=== PATIENT | female | born 1940 | race Caucasian/White ===

== ENCOUNTER 2025-05-01 09:36 | Emergency (ER) | payer MEDICARE, SELFPAY ==
[2025-05-01 09:43] VITALS: BP 149/79; PULSE 92; RESP 17; TEMP 36.8; O2SAT 93
--- OUTSIDE RECORDS SUMMARY | 2025-05-01 09:45 | XMS_ITS | Data Portability ---
Author Organization [facility] Address [address] [facility] [address] [place] [address] Assessment No assessment recorded. Plan of Treatment Reminders Order Date Submit Date Provider Last Modified By Organization Details Last Modified Time Details Appointments None recorded. Lab None recorded. Referral None recorded. Procedures None recorded. Surgeries None recorded. Imaging None recorded. Medication Orders famotidine 20 mg tablet 2024 025 [facility], [address] [place] [address], [address], 11:42:23 Patient TargetsNo targets recorded. Patient Instructions Encounter Date Encounter Id Patient Instructions Last Modified By Organization Details Last Modified Time 07/22/2024 [id number] No change in care. [email or web address] Not available 07/22/2024 16:38:23 09/23/2024 [id number] No change in michael n of care. Not available 09/23/2024 10:06:46 11/18/2024 [id number] No change in car e plan. [email or web address] Not available 11/18/2024 11:23:57 Reason for Referral None Reported. Problems Name Problem SNOMED Code Status Onset Date Resolution Date Notes Provider Name and Address Organization Details Recorded Time Hypercholest erolemia 29412108 Active 2022 Hyperch olester olemia; 023 2:43PM by Ramila Mccann, Office Visit; Promote d; acuity set as *; Not Available [facility] 03:10:43 Benign essential hypertension 9592244 Active 2022 Hyperte nsion; 023 2:43PM by Ramila Mccann, Office Visit; Promote d; acuity set as *; Andrew Caicedo MD [address] [place] [address], [phone] , [facility] 5 11:40:09 Dementia 41928275 Active 2022 Dementi a; 023 2:43PM by Ramila Mccann, Office Visit; Promote d; acuity set as *; Not Available [facility] 3 03:10:43 History of anxiety state 277504226 Active 2022 Anxiety /Depres aide; 023 2:44PM by Ramila Mccann, Office Visit; Promote d; acuity set as *; Andrew Caicedo MD [address] [place] [address], [phone] , [facility] 5 11:40:03 Mild protein-axel yuni malnutrition (weight for age 75-89 percent of standard) 587266856 Active 2022 Andrew Caicedo MD [address] [place] [address], [phone] , [facility] 3 19:12:37 Senile dementia 98687891 Active 2022 Andrew Caicedo MD [address] [place] [address], [phone] , [facility] 5 11:40:16 Pain of multiple joints 57848992 Active 2023 Andrew Caicedo MD [address] [place] [address], [phone] , [facility] 4 11:47:47 Acute superficial gastritis 588287487 Active 2024 Andrew Caicedo MD [address] [place] [address], [phone] , [facility] 5 11:41:19 Problem Notes None recorded. Medical Equipment None Reported. Medications Name Sig Start Date Stop Date Status Note LastModified by Organization Details LastModified Time hydroxyzi ne HCl 50 mg tablet TAKE 1 TABLET BY MOUTH TWICE DAILY NEEDED active Not Available Not Available No t Available amlodipin e 5 mg tablet TAKE 1 TABLET BY MOUTH ONCE DAILY active Not Available Not Available No t Available tramadol 50 mg tablet Take 1 tablet twice a day by oral route for 30 days. 2023 active Not Available Not Available Not Avai lable simvastat in 40 mg tablet TAKE 1 TABLET BY MOUTH ONCE DAILY AT BEDTIME 04/30 completed Not Available Not Available Not Available famotidin e 20 mg tablet Take 1 tablet twice a day by oral route for 30 days. 2024 active Not Available Not Available Not Avai lable simvastat in 20 mg tablet Take 1 tablet every day by oral route. active Not Available Not Available No t Available mirtazapi ne 15 mg tablet TAKE 1 TABLET BY MOUTH ONCE DAILY AT BEDTIME 03/10 completed Not Available Not Available Not Available hydroxych loroquine 200 mg tablet TAKE 1 TABLET BY MOUTH TWICE DAILY active Not Available Not Available No t Available levofloxa almas 500 mg tablet Take 1 tablet every 24 hours by oral route for 7 days. 2024 active Not Available Not Available Not Avai lable lisinopri l 40 mg tablet TAKE 1 TABLET BY MOUTH ONCE DAILY active Not Available Not Available No t Available sertralin e 50 mg tablet Take 1 tablet by mouth once daily 2024 active Not Available Not Available Not Avai lable hydroxyzi ne HCl BID as needed active 0; Recorded 06/29/19 23 2:42PM by Ramila Mccann, Office Visit; Not Available Not Available Not Available Vitamin D active 1.25 mg. weekly; 0; Recorded 06/29/19 23 2:41PM by Ramila Mccann, Office Visit; Not Available Not Available Not Available lisinopri l daily active 0; Recorded 06/29/19 23 2:40PM by Ramila Mccann, Office Visit; Not Available Not Available Not Available cholecalc iferol (vitamin D3) 1,250 mcg (50,000 unit) capsule TAKE 1 CAPSULE BY MOUTH ONCE A WEEK active Not Available Not Available No t Available amlodipin e besylate (bulk) daily active 0; Recorded 06/29/19 2:40PM by Ramila Mccann, Office Visit; Not Available Not Available Not Available Vitals Date Recorded Body height Body mass index (BMI) Body weight Respiratory rate Body temperature Oxygen saturation Heart rate Systolic And Diastolic Provider Name and Address Organization Details Last Updated DateTime 5 152.4 cm 20.1 kg/m2 02205.0 1 g 18 /min 97.6 [degF] 97 % 97 /min 158/88 mm[Hg] PAMELA [facility] 5 12:33:35 Date Recorded Body height Body mass index (BMI) Body weight Body temperature Respiratory rate Heart rate Oxygen saturation Systolic And Diastolic Provider Name and Address Organization Details Last Updated DateTime 5 152.4 cm 18.6 kg/m2 02566.2 8 g 97.2 [degF] 18 /min 93 /min 96 % 136/77 mm[Hg] PAMELA [facility] 5 11:29:31 Date Recorded Body height Body mass index (BMI) Body weight Heart rate Oxygen saturation Respiratory rate Systolic And Diastolic Provider Name and Address Organization Details Last Updated DateTime 5 152.4 cm 18.7 kg/m2 08385.8 7 g 86 /min 93 % 20 /min 150/80 mm[Hg] PMAELA [facility] 5 10:44:24 Date Recorded Body height Body mass index (BMI) Body weight Oxygen saturation Heart rate Respiratory rate Body temperature Systolic And Diastolic Provider Name and Address Organization Details Last Updated DateTime 5 152.4 cm 18.9 kg/m2 11166.4 6 g 95 % 75 /min 18 /min 97.6 [degF] 108/60 mm[Hg] PAM[facility]A [facility] 5 12:58:24 Date Recorded Body height Body mass index (BMI) Body weight Body temperature Heart rate Respiratory rate Oxygen saturation Systolic And Diastolic Provider Name and Address Organization Details Last Updated DateTime 5 152.4 cm 18.7 kg/m2 32123.8 7 g 98.4 [degF] 75 /min 18 /min 91 % 124/54 mm[Hg] PAMELA HAYDEN [facility] 5 10:37:26 Social History None recorded. Functional Status None recorded. Mental Status None recorded. Family History Nothing Reported. Medical History No medical history recorded. Gynecological HistoryNo gynecological history recorded. Obstetrics History GPAL:G 0 P 0 0 0 0 Past Encounters Encounter ID Performer Location Encounter Start Date Encounter Closed Date Diagnosis/Indication Diagnosis SNOMED-CT Code Diagnosis ICD10 Code Diagnosis IMO Codes Diagnosis Note [id number] Andrew Caicedo MD [facility] ([facility]) [address] [place] [phone] 09/12/2022 10:49:40 09/20/2022 23:03:47 Senile dementia 20087130 F03.90 Mild prote in-calorie malnutrition (weight for age 75-89 percent of standard) 482666003 E44.1 improved some since admission. Need for p ersonal care assistance [id number] 1288458 Z74.1 Lives in usp 16 9047820 Z76.89 [id number] Andrew Caicedo MD [facility] ([facility]) [address] [place] [id number] 5 11/21/2022 09:52:11 11/21/2022 19:57:55 Need for personal care assistance [id number] 9697915 Z74.1 Lives in [facility]p 16 5423467 Z76.89 Senile dementia 75851408 F03.90 [id number] Andrew Caicedo MD [facility] ([facility] [facility]) [address] [place] [id number] 01/16/2023 08:31:19 01/16/2023 16:37:03 Need for personal care assistance 8437001596 0942200 Z74.1 Lives in usp 16 3725710 Z76.89 Benign ess ential hypertension 9918344 I10 Dementia 84563570 F03.90 stable [id number] Andrew Caicedo MD [facility] ([facility]) [address] [place] [id number] 5 03/27/2023 07:57:33 03/27/2023 18:37:55 Need for personal care assistance [id number] 9410027 Z74.1 Lives in usp 16 7530330 Z76.89 Benign ess ential hypertension 8222813 I10 Dementia 91904252 F03.90 stable. Patient is not able to care for herself. History of anxiety state 357626361 F41.9 [id number] Andrew Caicedo MD [facility] ([facility] [facility]) [address] [place] [id number] 05/16/2023 07:57:44 05/16/2023 15:12:33 Benign essential hypertension 3461868 I10 Dementia 85715136 F03.90 stable. Patient is not able to care for herself. This is a moderate dementia. History of anxiety state 162863095 F41.9 [facility]isted [facility] [id number] 5501516 Z76.89 [id number] Andrew Caicedo MD [facility] ([facility] [facility]) [address] [place] [id number] 5 07/24/2023 07:55:21 07/24/2023 18:10:56 Need for personal care assistance 3660381742 4681543 Z74.1 Lives in usp 16 8980763 Z76.89 [id number] Andrew Caicedo MD [facility] ([facility]) [address] [place] [id number] 5 07/25/2023 07:58:00 07/29/2023 14:28:07 Need for personal care assistance [id number] 6887996 Z74.1 Lives in usp 16 2020063 Z76.89 Benign ess ential hypertension 1540112 I10 Dementia 42275587 F03.90 stable. Patient is not able to care for herself. This is a moderate dementia. Mild prote in-calorie malnutrition (weight for age 75-89 percent of standard) 171923571 E44.1 improved some since admission. [id number] Andrew Caicedo MD [facility] ([facility] [facility]) [address] [place] [id number] 09/11/2023 07:53:31 09/11/2023 17:08:29 Need for personal care assistance 0641096119 2231447 Z74.1 Lives in usp 16 6032130 Z76.89 Benign ess ential hypertension 5510262 I10 Senile dementia 29052869 F03.90 stable Mild prote in-calorie malnutrition (weight for age 75-89 percent of standard) 000396069 E44.1 Improved. [id number] Andrew Caicedo MD [facility] ([facility] [facility]) [address] [place] [id number] 5 11/21/2023 10:12:15 11/24/2023 22:37:54 Benign essential hypertension 0124563 I10 Dementia 55065608 F03.90 stable. Patient is not able to care for herself. This is a moderate dementia. Hypercholesterolemia 136 13295 E78.00 Pain of mu ltiple joints 72973042 M25.50 Will probably order Tramadol bid routing with Tylenol prn to see if this helps. Need for p ersonal care assistance [id number] 4031707 Z74.1 Lives in usp 16 6450900 Z76.89 [id number] Andrew Caicedo MD [facility] ([facility] [facility]) [address] [place] [id number] 02/12/2024 09:17:57 02/12/2024 17:52:19 Benign essential hypertension 9622248 I10 Dementia 12218207 F03.90 stable. Patient is not able to care for herself. This is a moderate dementia. Need for p ersonal care assistance [id number] 6670275 Z74.1 Lives in usp 16 5156875 Z76.89 [id number] Andrew Caicedo MD [facility] ([facility] [facility]) [address] [place] [id number] 5 03/11/2024 11:45:18 03/16/2024 12:23:42 Need for personal care assistance [id number] 6017334 Z74.1 Lives in usp 16 8347597 Z76.89 Benign ess ential hypertension 7982837 I10 Senile dementia 73814900 F03.90 stable [id number] Andrew Caicedo MD [facility] ([facility] [facility]) [address] [place] [id number] 5 05/20/2024 08:17:56 05/22/2024 12:21:43 Lives in usp 391122577 Z76.89 Need for p ersonal care assistance [phone] 7674038 Z74.1 Benign ess ential hypertension 0393784 I10 Dementia 40620977 F03.90 stable. Patient is not able to care for herself. This is a moderate dementia. [id number] Andrew Caicedo MD [facility] ([facility] [facility]) [address] [place] [id number] 5 07/22/2024 09:19:45 07/29/2024 09:10:38 Lives in usp 226918700 Z76.89 Need for p ersonal care assistance [id number] 6586490 Z74.1 Benign ess ential hypertension 8709483 I10 Dementia 87581335 F03.90 stable. Patient is not able to care for herself. This is a moderate dementia. [id number] Andrew Caicedo MD [facility] ([facility] [facility]) [address] [place] [id number] 5 09/23/2024 08:09:49 09/23/2024 23:09:08 Benign essential hypertension 2410208 I10 Dementia 47085761 F03.90 stable. Patient is not able to care for herself. This is a moderate dementia. History of anxiety state 365137316 F41.9 stable at present. Need for p ersonal care assistance [phone] 7090221 Z74.1 Lives in usp 16 5777994 Z76.89 [id number] Andrew Caicedo MD [facility] ([facility] [facility]) [address] [place] [id number] 5 11/18/2024 08:24:48 11/20/2024 09:31:07 Need for personal care assistance [id number] 5450510 Z74.1 6992217 Lives in usp 16 3793405 Z78.9 6918603 Benign ess ential hypertension 3848227 I10 Dementia 27375640 F03.90 stable. Patient is not able to care for herself. This is a moderate dementia. History of anxiety state 005179679 F41.9 stable at present. [id number] Andrew Caicedo MD [facility] ([facility] [facility]) [address] [place] [id number] 01/13/2025 12:25:53 01/13/2025 18:53:32 Need for personal care assistance [id number] 2410169 Z74.1 [id number] Lives in usp 16 2984051 Z78.9 9908259 Benign ess ential hypertension 0058015 I10 Senile dementia 01229657 F03.90 stable [id number] Andrew Caicedo MD [facility] ([facility]) [address] [place] [address] 03/24/2025 09:07:20 03/24/2025 11:56:19 Need for personal care assistance [id number] 9329350 Z74.1 1424446 Lives in usp 16 9768231 Z78.9 8223950 History of anxiety state 189464834 F41.9 stable at present. Benign ess ential hypertension 9307984 I10 Senile dementia 44089750 F03.90 stable Acute supe rficial gastritis 655272509 K29.00 [id number] Health Concerns Section Related Observation LastModified by Organization Detai ls LastModified Time None Recorded Concern Status LastModified by Organization Details LastModified Time None Recorded Advance Directives Directive None Recorded Payers Insurance Date Sequence Insurance Name Policy Number Policy Gomez Covered Member ID Gomez Member ID Guarantor Name 03/24/2025 [place] - [facility]IC[facility] Tamara E Roof [id number] 1 Tamara Roof 03/24/2025 1 [place] Tamara E Roof [id number] 1 Tamara Roof 03/24/2025 [employer] Tamara Roof [id number] Tamara Roof 03/24/2025 1 [employer] (MEDICARE REPLACEMENT/A DVANTAGE - PPO) Tamara E Roof [id number] Tamara Roof Notes Date Note Type Note Provider Name and Address Organization Details Recorded Time 07/22/2024 text/html No new problems or concerns. Andrew Caicedo MD [address] [place] [address], [phone], [facility] 07/22/2024 16:38:35 09/23/2024 text/html No new problems. Andrew Caicedo MD [address] [place] [address], [phone], [facility] 09/23/2024 12:53:48 11/18/2024 text/html Has had a bit of a cough but daughter feels that it is better. Andrew Caicedo MD [address] [place] [address], [phone], [facility] 11/18/2024 11:24:06 01/13/2025 text/html No problems or concerns. Andrew Caicedo MD [address] [place] [address], [phone], [facility] 01/13/2025 17:24:29 03/24/2025 text/html Patient feels a bit of an upset stomach for the past couple of days with decreased appetite. Andrew Caicedo MD [address] [place] [address], [phone], [facility] 03/24/2025 11:43:01 OBGyn Episode No OBEpisode recorded.
--- OUTSIDE RECORDS SUMMARY | 2025-05-01 09:45 | XMS_ITS | Continuity of Care Document ---
Author Organization [facility], [facility] ([facility]) Address [address] [place] [address] Assessment No assessment recorded. Plan of Treatment Reminders Order Date Submit Date Provider Last Modified By Organization Details Last Modified Time Details Appointments None recorded. Lab None recorded. Referral None recorded. Procedures None recorded. Surgeries None recorded. Imaging None recorded. Medication Orders famotidine 20 mg tablet 2024 025 [facility], [address] [place] [address], [address], 11:42:23 Patient TargetsNo targets recorded. Patient InstructionsNo instructions recorded. Reason for Referral None Reported. Problems Name Problem SNOMED Code Status Onset Date Resolution Date Notes Provider Name and Address Organization Details Recorded Time Hypercholest erolemia 60114646 Active 2022 Hyperch olester olemia; 023 2:43PM by Ramila Mccann, Office Visit; Promote d; acuity set as *; Not Available [facility] 3 03:10:43 Benign essential hypertension 0303594 Active 2022 Hyperte nsion; 023 2:43PM by Ramila Mccann, Office Visit; Promote d; acuity set as *; Andrew Caicedo MD [address] [place] [address], [phone] , [facility] 5 11:40:09 Dementia 75998165 Active 2022 Dementi a; 023 2:43PM by Ramila Mccann, Office Visit; Promote d; acuity set as *; Not Available [facility] 3 03:10:43 History of anxiety state 109753194 Active 2022 Anxiety /Depres aide; 023 2:44PM by Ramila Mccann, Office Visit; Promote d; acuity set as *; Andrew Caicedo MD [address] [place] [address], [address] [place] [address] , [facility] 5 11:40:03 Mild protein-axel yuni malnutrition (weight for age 75-89 percent of standard) 354250068 Active 2022 Andrew Caicedo MD [address] [place] [address], [address] [place] [address] , [facility] 3 19:12:37 Senile dementia 68788135 Active 2022 Andrew Caicedo MD [address] [place] [address], [address] [place] [address] , [facility] 5 11:40:16 Pain of multiple joints 36225539 Active 2023 Andrew Caicedo MD [address] [place] [address], [address] [place] [address] , [facility] 4 11:47:47 Acute superficial gastritis 784847951 Active 2024 Andrew Caicedo MD [address] [place] [address], [address] [place] [address] , [facility] 5 11:41:19 Problem Notes None recorded. [...] BID as needed active 0; Recorded 06/29/19 2:42PM by Ramila Mccann, Office Visit; Not Available Not Available Not Available Vitamin D active 1.25 mg. weekly; 0; Recorded 06/29/19 2:41PM by Ramila Mccann, Office Visit; Not Available Not Available Not Available lisinopri l daily active 0; Recorded 06/29/19 2:40PM by [...] Updated DateTime 5 152.4 cm 18.7 kg/m2 88519.8 7 g 98.4 [degF] 75 /min 18 /min 91 % 124/54 mm[Hg] PAMELA HAYDEN [facility], [facility]. 10:37:26 Social History None recorded. Functional Status None recorded. Mental Status None recorded. Family History Nothing Reported. Medical History No medical history recorded. Gynecological HistoryNo gynecological history recorded. Obstetrics History GPAL:G 0 P 0 0 0 0 Past Encounters Encounter ID Performer Location Encounter Start Date Encounter Closed Date Diagnosis/Indication Diagnosis SNOMED-CT Code Diagnosis ICD10 Code Diagnosis IMO Codes Diagnosis Note [id number] Andrew Caicedo MD [facility] ([facility]) [address] [place] [address] 03/24/2025 09:07:20 03/24/2025 11:56:19 Need for personal care assistance [id number] 8616074 Z74.1 5162884 Lives in senior living 16 4925824 Z78.9 5360716 History of anxiety state 199696472 F41.9 stable at present. Benign ess ential hypertension 8103792 I10 Senile dementia 49452387 F03.90 stable Acute supe rficial gastritis 625410969 K29.00 28477822 Health Concerns Section Related Observation LastModified by Organization Detai ls LastModified Time None Recorded Concern Status LastModified by Organization Details LastModified Time None Recorded Payers Encounter Date Sequence Insurance Name Policy Number Policy Gomez Covered Member ID Gomez Member ID Guarantor Name 03/24/2025 1 [place]ICARE [place]: [place] Tamarayessy Arevalo [id number] 1 Tamara Arevalo Notes Date Note Type Note Provider Name and Address Organization Details Recorded Time 03/24/2025 text/html Patient feels a bit of an upset stomach for the past couple of days with decreased appetite. Andrew Caicedo MD [address] [place] [address], [phone], [facility], [facility]. 03/24/2025 11:43:01 OBGyn Episode No OBEpisode recorded.
--- NOTE | 2025-05-01 09:46 | XRR_ITS ---
PROCEDURE INFORMATION: Exam: XR Chest Exam date and time: 05/01/2025 11:19 AM Age: 84 years old Clinical indication: Shortness of breath TECHNIQUE: Imaging protocol: Radiologic exam of the chest. Views: 1 view. COMPARISON: No relevant prior studies available. FINDINGS: Tubes, catheters and devices: A metallic surgical plate and screws can be seen in the cervical spine. Lungs: Unremarkable. No consolidation or mass. Pleural spaces: Unremarkable. No pleural effusion. No pneumothorax. Heart/Mediastinum: Unremarkable. No cardiomegaly. Bones/joints: The bony structures demonstrate diffuse osteopenia. XR/XR chest 1V portable [id number] IMPRESSION: No acute findings.
--- NOTE | 2025-05-01 09:46 | CTR_ITS ---
PROCEDURE INFORMATION: Exam: CT Pelvis Without Contrast, Skeleton Exam date and time: 05/01/2025 10:12 AM Age: 84 years old Clinical indication: Injury or trauma; Fall; Blunt trauma (contusions or hematomas); Bilateral; Pelvic region; Prior surgery; Surgery date: 6+ months; Surgery type: [facility] hips; Additional info: Traumatic pelvic pain TECHNIQUE: Imaging protocol: Computed tomography of the pelvis without contrast. Exam focused on the skeleton. Radiation optimization: All CT scans at this facility use at least one of these dose optimization techniques: automated exposure control; mA and/or kV adjustment per patient size (includes targeted exams where dose is matched to clinical indication); or iterative reconstruction. COMPARISON: CT lumbar spine wo con* [id number] 05/01/2025 10:12 AM RADIATION DOSE METRICS: Total DLP (mGy-cm): 213.3 FINDINGS: Bones/joints: The bony structures demonstrate diffuse osteopenia. Bilateral hip prostheses are noted. No acute fracture noted. Soft tissues: Unremarkable. CT/CT pelvis wo con [id number] IMPRESSION: 1. No acute findings. 2. Osteoporosis
--- NOTE | 2025-05-01 09:46 | CTR_ITS ---
PROCEDURE INFORMATION: Exam: CT Head Without Contrast Exam date and time: 05/01/2025 10:08 AM Age: 84 years old Clinical indication: Injury or trauma; Fall; Blunt trauma (contusions or hematomas); Additional info: Fall, head injury TECHNIQUE: Imaging protocol: Computed tomography of the head without contrast. Radiation optimization: All CT scans at this facility use at least one of these dose optimization techniques: automated exposure control; mA and/or kV adjustment per patient size (includes targeted exams where dose is matched to clinical indication); or iterative reconstruction. COMPARISON: No relevant prior studies available. RADIATION DOSE METRICS: Total DLP (mGy-cm): 951.98 FINDINGS: Brain: There is prominent chronic periventricular white matter ischemic change. There is no evidence of mass effect, hemorrhage or infarct. Mild diffuse cerebral atrophy is noted. Cerebral ventricles: No ventriculomegaly. No midline shift. Paranasal sinuses: Visualized sinuses are unremarkable. No fluid levels. Mastoid air cells: Visualized mastoid air cells are well aerated. Bones: Unremarkable. No acute fracture. Soft tissues: Unremarkable. CT/CT head wo con* [id number] IMPRESSION: 1. No acute findings noted 2. Cerebral atrophy with chronic ischemic changes noted
--- NOTE | 2025-05-01 09:46 | CTR_ITS ---
PROCEDURE INFORMATION: Exam: CT Lumbar Spine Without Contrast Exam date and time: 05/01/2025 10:12 AM Age: 84 years old Clinical indication: Injury or trauma; Fall; Blunt trauma (contusions or hematomas); Additional info: Low back pain TECHNIQUE: Imaging protocol: Computed tomography of the lumbar spine without contrast. Radiation optimization: All CT scans at this facility use at least one of these dose optimization techniques: automated exposure control; mA and/or kV adjustment per patient size (includes targeted exams where dose is matched to clinical indication); or iterative reconstruction. COMPARISON: CT pelvis wo con [id number] 05/01/2025 10:12 AM RADIATION DOSE METRICS: Total DLP (mGy-cm): 336.6 FINDINGS: Bones/joints: The bony structures demonstrate diffuse osteopenia. No acute fracture or subluxation noted. The spinal canal is normally maintained. Kidneys and ureters: Multiple cysts involve the left kidney. Soft tissues: Unremarkable. CT/CT lumbar spine wo con* [id number] IMPRESSION: 1. No acute findings. 2. Osteoporosis 3. A benign renal cyst or cysts have been detected. No further follow-up imaging is required. COMMENTS: Consistent with the [employer]'s Incidental Findings Committee white paper (J Am Pauly Radiol 2018): Any incidental renal lesion less than 1 cm or classified as too small to characterize, or any incidental cystic renal lesion characterized as simple-appearing, is likely benign. No follow-up imaging is recommended for these lesions per consensus recommendations based on imaging criteria.
--- NOTE | 2025-05-01 09:49 | W.ED.AMS ---
HPI - Altered Mental Status General: Chief Complaint: Altered Mental Status Stated Complaint: confusion / cough Time Seen by Provider: 05/01/25 09:43 History of Present Illness: 84-year-old female with a history of dementia, depression, anxiety, hypertension who presents to the emergency room by private vehicle from an assisted living center. Daughter is present and provides most of the history. She tells me that about a week ago she had an aspiration event. Levaquin was ordered and was delivered to the facility but did not start it until several days later. So she is only been on it a couple of days now. She then had a fall. This was out of a chair couple of days ago. No known head injury but she has been having some pain in her right buttock. She is able to stand and pivot on that leg. Daughter brought her today because of worsening cough and they were complaining of some confusion that is worsening since yesterday. Related Data Allergies Allergy/AdvReac Type Severity Reaction Status Date / Time codeine Allergy Unknown Verified 05/01/25 09:47 Iodinated Contrast Media Allergy Unknown Verified 05/01/25 09:47 Review of Systems Narrative: Constitutional symptoms: Negative except as documented in HPI. Skin symptoms: Negative except as documented in HPI. Eye symptoms: Negative except as documented in HPI. ENMT symptoms: Negative except as documented in HPI. Respiratory symptoms: Negative except as documented in HPI. Cardiovascular symptoms: Negative except as documented in HPI. Gastrointestinal symptoms: Negative except as documented in HPI. Genitourinary symptoms: Negative except as documented in HPI. Musculoskeletal symptoms: Negative except as documented in HPI. Neurologic symptoms: Negative except as documented in HPI. Psychiatric symptoms: Negative except as documented in HPI. Endocrine symptoms: Negative except as documented in HPI. Physical Exam Narrative: General: Alert, no acute distress. Skin: Warm, dry. Head: Normocephalic, atraumatic. Neck: Supple, trachea midline. Eye: Extraocular movements are intact. Ears, nose, mouth and throat: mucosa moist. Cardiovascular: Regular, Normal peripheral perfusion. Respiratory: Lungs are clear to auscultation, respirations are non-labored, breath sounds are equal, Symmetrical chest wall expansion. Gastrointestinal: Soft, Nontender, Non distended Musculoskeletal: Normal ROM, no deformity. Neurological: Alert, pleasant, slightly confused, oriented to her daughter. No focal neurological deficit observed. Psychiatric: Cooperative, appropriate mood & affect. Course Vital Signs: Vital signs: Vital Signs Temperature 98.3 F 05/01/25 09:43 Pulse Rate 92 05/01/25 09:43 Respiratory Rate 17 05/01/25 09:43 Blood Pressure 149/79 05/01/25 09:43 Pulse Oximetry 93 05/01/25 09:43 Oxygen Delivery Me thod Room Air 05/01/25 09:43 MDM - Altered Mental Status Medical Decision Making Medical decision making Patient's reason for coming to the emergency room: Worsening confusion cough and shortness of breath Social determinants: Patient is retired in an assisted living. I reviewed the patient's medical record. I reviewed paperwork sent from assisted living. [facility] Est[facility]. She has dementia depression anxiety and hypertension. I reviewed the patient's current home meds No anticoagulation listed Alternate historians: History per daughter. Differential diagnosis including but not limited to and based on the above HPI, review of systems and physical exam: In this patient with altered mental status: Stroke. Hypoglycemia. Metabolic encephalopathy. Infections such as pneumonia, urinary tract infection, Covid-19, Influenza. Electrolyte abnormalities such as hypernatremia. Renal failure / uremia. Hepatic encephalopathy. Hypoxemia. Hypercapnic respiratory failure. Psychosis. Drug or alcohol intoxication. Medication overdose. Orders placed to evaluate differential diagnosis based on the above differential, HPI and physical exam Differential diagnosis for patient with shortness of breath includes but is not limited to and based on the above HPI, review of systems and physical exam: Pneumonia. Bronchitis. Asthma or COPD with acute exacerbation. Acute coronary syndrome / PR. Pulmonary embolism. Anxiety. Congestive heart failure. Viral infections including influenza and Covid-19. Atrial fibrillation. Anxiety. Pleural effusion. Pneumothorax. Orders placed to evaluate differential diagnosis based on the above differential, HPI and physical exam Also minor concern for pelvic or femur fracture so CT of the pelvis was ordered. Given pain with no deformity and ability to ambulate would have more concern for sacral, occult fractures that likely would not present on a x-ray and since we are doing a head CT with her confusion going ahead and just doing a pelvic CT EKG: Time 10:04 AM. Rate 85. Normal sinus rhythm, nonspecific ST changes, no ectopy, normal OR & QRS intervals, This was reviewed and interpreted by myself the ER physician at 10:10 AM Chest x-ray: No acute process. No infiltrate. No pneumothorax. This was reviewed and interpreted by myself the emergency room physician. I also reviewed the radiology report. CT head: No acute intracranial process. No intracranial hemorrhage, no evidence of infarct. No evidence of acute fracture. This was reviewed and interpreted by myself the emergency room physician. I also reviewed the radiology report. CT of the pelvis: No acute fractures or dislocations. This was reviewed and interpreted by myself the emergency room physician. I also reviewed the radiology report. Lab Review: Laboratory results were reviewed and interpreted by myself the emergency room physician. No leukocytosis. Mild anemia with hemoglobin 9.9. Mild renal insufficiency with a creatinine of 1.5. No comparison films. Troponin is elevated but unchanged. This is most likely her baseline. Assessment of risk: Level of risk: Moderate risk. Dementia and multiple comorbidities Hospitalization considerations: No indication for hospitalization today. Reexamination: Patient remained stable. No increased work of breathing. No altered mental status. No focal motor deficits. Assessment and plan: Encephalopathy Dehydration Bronchitis ? Patient is on Levaquin at home. No focal infiltrates. 500 mL normal saline bolus in the emergency room one-time dose of steroids. - Discharged home - Discussed plan with patient. Answered any questions. - Evaluation and treatment of this problem were appropriate in the emergency setting. Lab Data 05/01/25 10:00 05/01/25 10:00 Radiology Impressions Chest X-Ray 05/01/25 09:46 IMPRESSION: No acute findings. Head CT 05/01/25 09:46 IMPRESSION: 1. No acute findings noted 2. Cerebral atrophy with chronic ischemic changes noted Lumbar Spine CT 05/01/25 09:46 IMPRESSION: 1. No acute findings. 2. Osteoporosis 3. A benign renal cyst or cysts have been detected. No further follow-up imaging is required. COMMENTS: Consistent with the [employer] [employer]'s Incidental Findings Committee white paper (J Am Pauly Radiol 2018): Any incidental renal lesion less than 1 cm or classified as too small to characterize, or any incidental cystic renal lesion characterized as simple-appearing, is likely benign. No follow-up imaging is recommended for these lesions per consensus recommendations based on imaging criteria. Pelvis CT 05/01/25 09:46 IMPRESSION: 1. No acute findings. 2. Osteoporosis Laboratory Results WBC 4.58 10^3/uL (3.29-11.43) 05/01/25 10:00 RBC 3.26 10^6/uL (3.85-5.65) L 05/01/25 10:00 Hgb 9.90 g/dL (11.27-16.99) L 05/01/25 10:00 Hct 30.8 % (36-47) L 05/01/25 10:00 MCV 94.5 fl (85-98) 05/01/25 10:00 MCH 30.4 pg (27-33) 05/01/25 10:00 MCHC 32.1 g/dL (30-55) 05/01/25 10:00 RDW 12.3 % (12.1-15.1) 05/01/25 10:00 Plt Count 130 10^3/cmm (157-399) L 05/01/25 10:00 MPV 9.2 fL (7.4-10.4) 05/01/25 10:00 Neut % (Auto) 74.5 % 05/01/25 10:00 Lymph % (Auto) 12.7 % 05/01/25 10:00 [place] % (Auto) 12.0 % 05/01/25 10:00 Eos % (Auto) 0.0 % 05/01/25 10:00 Baso % (Auto) 0.4 % 05/01/25 10:00 Neut # (Auto) 3.41 10^3/uL (1.8-7.7) 05/01/25 10:00 Lymph # (Auto) 0.6 10^3/uL (0.8-4.8) L 05/01/25 10:00 [place] # (Auto) 0.6 10^3/uL (0.2-0.9) 05/01/25 10:00 Eos # (Auto) 0.0 10^3/uL (0.0-0.8) 05/01/25 10:00 Baso # (Auto) 0.0 10^3/uL (0.0-0.1) 05/01/25 10:00 Nucleated RBC % (auto) 0 % 05/01/25 10:00 Nucleated RBCs # 0.0 /100WBC 05/01/25 10:00 Sodium 134 mmol/L (136-145) L 05/01/25 10:00 Potassium 4.3 mmol/L (3.5-5.1) 05/01/25 10:00 Chloride 99 mmol/L (98-107) 05/01/25 10:00 Carbon Dioxide 24 mmol/L (22-29) 05/01/25 10:00 Anion Gap 15.3 (5-19) 05/01/25 10:00 BUN 23 mg/dL (8-23) 05/01/25 10:00 Creatinine 1.5 mg/dL (0.5-0.9) H 05/01/25 10:00 GFR Calculation Not Reportable 05/01/25 10:00 Glucose 100 mg/dL (65-115) 05/01/25 10:00 Calculated Osmolality 282 mOsm/kg (285-295) L 05/01/25 10:00 Lactic Acid 0.9 mmol/L (0.5-2.2) 05/01/25 10:00 Calcium 9.3 mg/dL (8.5-10.5) 05/01/25 10:00 Total Bilirubin 0.4 mg/dL (0.15-1.2) 05/01/25 10:00 AST 27 U/L (0-32) 05/01/25 10:00 ALT 18 U/L (0-33) 05/01/25 10:00 Alkaline Phosphatase 69 U/L (35-105) 05/01/25 10:00 Troponin T Baseline 138 ng/L (0-10) H* 05/01/25 10:00 Troponin T 120 Minute 136.1 ng/L (0-10) H 05/01/25 11:01 Delta Troponin T -1.9 ABS# (0-10) L 05/01/25 11:01 C-Reactive Protein 30.0 mg/L (0.0-4.9) H 05/01/25 10:00 NT-Pro-B Natriuret Pep 2053 pg/mL (0-450) H 05/01/25 10:00 Total Protein 6.2 g/dL (6.6-8.7) L 05/01/25 10:00 Albumin 4.3 g/dL (3.5-5.2) 05/01/25 10:00 Globulin 1.9 g/dL (1.3-4.6) 05/01/25 10:00 Procalcitonin 0.11 ng/mL (0-0.5) 05/01/25 10:00 Urine Color Yellow (Yellow) 05/01/25 10:32 Urine Appearance Clear (CLEAR) 05/01/25 10:32 Urine pH 6.5 (5-7) 05/01/25 10:[address] 1.016 (1.005-1.030) 05/01/25 10:32 Urine Protein 1+ (Negative) A 05/01/25 10:32 Urine Glucose (UA) Negative (Normal) 05/01/25 10:32 Urine Ketones Negative (Negative) 05/01/25 10:32 Urine Blood Negative (Negative) 05/01/25 10:32 Urine Nitrate Negative (Negative) 05/01/25 10:32 Urine Bilirubin Negative (Negative) 05/01/25 10:32 Urine Urobilinogen 1.0 mg/dL (Negative) 05/01/25 10:32 Ur Leukocyte Esterase Negative (Negative) 05/01/25 10:32 Amorphous Sediment Not Reportable 05/01/25 10:32 Influenza A (PCR) Negative (Negative) 05/01/25 10:00 Influenza Type B (PCR) Negative (Negative) 05/01/25 10:00 RSV (PCR) Negative (Negative) 05/01/25 10:00 SARS-CoV-2 (PCR) Negative (Negative) 05/01/25 10:00 All radiology interpretation(s) finalized by discharge Discharge Plan Discharge Patient Disposition: Home Clinical Impression: Dementia, Cough, Encephalopathy, Dehydration Condition: Stable Discharge Orders: Discharge ED (Routine); Ordered 05/01/25 Ordered By: Magdalena Torres Referrals: Andrew Caicedo MD [Primary Care Provider, [facility]] Discharge Diet: Usual diet Discharge Activity: Increase activity as tolerated Patient Instructions: Altered Mental Status (ED), Opioid Safety, Pain Management, Patient Portal & Emma Instructions Activity Restrictions/Additional Instructions: Thank you for choosing [facility] for your healthcare needs today. You have been screened and evaluated and felt safe for discharge. Health conditions do change or evolve sometimes and as such it is important that you follow up with your Primary Doctor to be re checked, 3-5 days is a general good time frame for follow up. You are always welcome to return to the ED for re assessment if your symptoms are worsening or you have new concerns Print Language: Lebanese Coding Level of Care Code ED Cargo Bracer for Chg Fwd
--- NOTE | 2025-05-01 10:04 | ECG_ITS ---
[facility]: [facility]25[facility]01 Pat Name: Tamara Arevalo Department: Room: Gender: Female Relations Liaison: : 1940 Requested By: Magdalena Jorgensen Order Number: [id number] Attila MD: Lulu Renteria M.D. Measurements Intervals [place] Rate: 85 P: 0 IN: 0 QRS: -34 QRSD: 104 T: 47 QT: 378 QTc: 450 Interpretive Statements SINUS RHYTHM LEFT AXIS DEVIATION [QRS AXIS < -30] VOLTAGE CRITERIA FOR LVH [MEETS CRITERIA IN ONE OF: R(aVL), S(V1), R(V5), R(V5/V6)+S(V1)] NONSPECIFIC ST & T-WAVE ABNORMALITY No previous ECG available for comparison Electronically Signed On 05-01-2025 13:47:57 UTILITY APPRAISER by Lulu Renteria M.D. [email or web address]
[2025-05-01 10:10] LABS: Hematocrit 30.8 % (36-47); Hemoglobin 9.90 g/dL (11.27-16.99); Mean Corpuscular HGB Conc 32.1 g/dL (30-55); Mean Corpuscular Hemoglobin 30.4 pg (27-33); Mean Corpuscular Volume 94.5 fl (85-98); Nucleated Red Blood Cells % 0 %; Platelet Count 130 10^3/cmm (157-399); Red Blood Count 3.26 10^6/uL (3.85-5.65); White Blood Count 4.58 10^3/uL (3.29-11.43)
[2025-05-01 10:30] VITALS: BP 163/76; PULSE 93; O2SAT 95
[2025-05-01 10:32] LABS: Lactic Sepsis W/Reflex 0.9 mmol/L (0.5-2.2)
[2025-05-01 10:41] LABS: NT Pro B Type Natriuretic Pept 2053 pg/mL (0-450); Procalcitonin 0.11 ng/mL (0-0.5)
[2025-05-01 10:46] LABS: Glucose Urine UA Negative (Normal); Nitrate Urine Negative (Negative); Specific Gravity, Urine 1.016 (1.005-1.030)
[2025-05-01 10:52] LABS: Alanine Aminotransferase 18 U/L (0-33); Albumin Level 4.3 g/dL (3.5-5.2); Alkaline Phosphatase 69 U/L (35-105); Anion Gap 15.3 (5-19); Aspartate Amino Transferase 27 U/L (0-32); Blood Urea Nitrogen 23 mg/dL (8-23); Calcium 9.3 mg/dL (8.5-10.5); Carbon Dioxide 24 mmol/L (22-29); Chloride 99 mmol/L (98-107); Globulin 1.9 g/dL (1.3-4.6); Glucose 100 mg/dL (65-115); Osmolality Calculated 282 mOsm/kg (285-295); Potassium 4.3 mmol/L (3.5-5.1); Sodium 134 mmol/L (136-145); Total Protein 6.2 g/dL (6.6-8.7)
[2025-05-01 10:53] LABS: Troponin(5th) Baseline 138 ng/L (0-10)
[2025-05-01 10:56] LABS: Respiratory Syncytial Virus Ce NEGATIVE (Negative); SARS-CoV-2 PCR NEGATIVE (Negative)
[2025-05-01 11:00] VITALS: BP 150/76; PULSE 87; O2SAT 100
[2025-05-01 11:27] LABS: Troponin 5 2HR 136.1 ng/L (0-10); Troponin 5 2HR Delta -1.9 ABS# (0-10)
[2025-05-01 11:30] VITALS: BP 148/73
[2025-05-01 12:15] VITALS: BP 137/64; PULSE 80; O2SAT 95
[2025-05-01 12:45] VITALS: BP 142/78; PULSE 86; O2SAT 93
== END 2025-05-01 12:45 | disposition home or self-care (01) ==
PROVIDERS: Emergency Provider Emergency Medicine; PCP Family Medicine
DX: F03.90 Unspecified dementia, unspecified severity, without behavioral disturbance, psychotic disturbance, mood disturbance, and anxiety (principal); R05.9 Cough, unspecified; G93.40 Encephalopathy, unspecified; E86.0 Dehydration; Z11.52 Encounter for screening for COVID-19; I10 Essential (primary) hypertension
CPT/HCPCS: 36415; 70450; 71045; 72131; 72192; 80053; 81001; 83605; 83880; 84145; 84484; 85025; 86140; 87040; 87637; 93005; 96374; 99285; J1100; J7040